=== PATIENT | male | born 1970 | race Caucasian/White ===

== ENCOUNTER 2020-07-17 15:33 | Inpatient (IN) | payer OTHER ==
[~2020-07-17] VITALS: Ht 182.9 cm; Wt 90.3 kg
[~2020-07-17 15:33] MED LIST: ALBUTEROL2.5 MG/3 M INH; AMLODIPINE BESY10 MG PO; COZAAR100 MG PO; CYANOCOBAL1000 MCG/1 INJ; LORATADINE10 MG PO; OMEPRAZOLE20 MG PO; SIMVASTATIN10 MG PO; VITAMIN D350 MC3 PO
[2020-07-17 19:02] LABS: BUN/CREATININE RATIO 16 (0-10)
[2020-07-17 20:23] LABS: HEMOGLOBIN 9.3 gm/dl (14.0-17.5); RED BLOOD COUNT 3.47 M/UL (4.20-5.50); WHITE BLOOD COUNT 20.7 K/UL (4.5-11.0)
[2020-07-17] MEDS ORDERED: MULTIVITAMINS1 EAC2 PO (20:44)
[2020-07-17] MEDS ORDERED: LEVOFLOXACIN750 MG PO (20:45)
[2020-07-18 04:39] LABS: RED BLOOD COUNT 3.22 M/UL (4.20-5.50); WHITE BLOOD COUNT 21.5 K/UL (4.5-11.0)
[2020-07-18 05:00] LABS: BUN/CREATININE RATIO 14 (0-10)
[2020-07-20 04:35] LABS: HEMOGLOBIN 8.2 gm/dl (14.0-17.5); RED BLOOD COUNT 2.98 M/UL (4.20-5.50)
[2020-07-20 04:46] LABS: WHITE BLOOD COUNT 12.3 K/UL (4.5-11.0)
[2020-07-20 04:58] LABS: BUN/CREATININE RATIO 7 (0-10)
[2020-07-21 06:24] LABS: BUN/CREATININE RATIO 6 (0-10)
[2020-07-21 06:39] LABS: HEMOGLOBIN 8.8 gm/dl (14.0-17.5); RED BLOOD COUNT 3.2 M/UL (4.20-5.50); WHITE BLOOD COUNT 12.7 K/UL (4.5-11.0)
[2020-07-22 03:34] LABS: HEMOGLOBIN 9.3 gm/dl (14.0-17.5); RED BLOOD COUNT 3.38 M/UL (4.20-5.50); WHITE BLOOD COUNT 11.3 K/UL (4.5-11.0)
[2020-07-22 03:54] LABS: BUN/CREATININE RATIO 6 (0-10)
[2020-07-23 04:34] LABS: HEMOGLOBIN 9.8 gm/dl (14.0-17.5); RED BLOOD COUNT 3.52 M/UL (4.20-5.50)
[2020-07-23 05:04] LABS: BUN/CREATININE RATIO 7 (0-10)
[2020-07-23 05:13] LABS: WHITE BLOOD COUNT 14.9 K/UL (4.5-11.0)
[2020-07-23] MEDS ORDERED: ZYVOX600 MG PO (13:32)
[2020-07-23] MEDS ORDERED: LEVOFLOXACIN750 MG PO (13:32)
[2020-07-23] MEDS ORDERED: LOPRESSOR 25 MG25 MG PO (13:32)
[2020-07-24 05:50] LABS: HEMOGLOBIN 9.8 gm/dl (14.0-17.5); RED BLOOD COUNT 3.62 M/UL (4.20-5.50); WHITE BLOOD COUNT 14.1 K/UL (4.5-11.0)
[2020-07-24 06:09] LABS: BUN/CREATININE RATIO 7 (0-10)
[2020-07-24] MEDS ORDERED: LEVOFLOXACIN750 MG PO (11:29)
[2020-07-24] MEDS ORDERED: ZYVOX600 MG PO (11:29)
[2020-07-24] MEDS ORDERED: SYMBICORT 160-1 INHA INH (12:56)
[2020-07-24] MEDS ORDERED: SPIRIVA HANDIH18 MCG INH (12:56)
[2020-07-24] MEDS ORDERED: MEROPENEM1 GM IV (14:04)
== END 2020-07-24 17:41 | disposition home or self-care (01) | DRG 871 ==
LOC: ER1 15:33 → CDU 18:22 → M/S 18:22
PROVIDERS: Emergency Medicine; Internal Medicine Pulmonary Disease; Physician Assistant; ADMIT Internal Medicine
PROC: 3E1F88Z Irrigation of Respiratory Tract using Irrigating Substance, Via Natural or Artificial Opening Endoscopic (ICD-10-PCS; principal; 2020-07-18 15:06)
PROC: 0JH63WZ Insertion of Totally Implantable Vascular Access Device into Chest Subcutaneous Tissue and Fascia, Percutaneous Approach (ICD-10-PCS; 2020-07-24)
PROC: 02HV33Z Insertion of Infusion Device into Superior Vena Cava, Percutaneous Approach (ICD-10-PCS; 2020-07-24)
PROC: B548ZZA Ultrasonography of Superior Vena Cava, Guidance (ICD-10-PCS; 2020-07-24)
DX: A41.52 Sepsis due to Pseudomonas (principal); J85.0 Gangrene and necrosis of lung; J15.3 Pneumonia due to streptococcus, group B; C34.11 Malignant neoplasm of upper lobe, right bronchus or lung; A41.9 Sepsis, unspecified organism; J44.9 Chronic obstructive pulmonary disease, unspecified; I10 Essential (primary) hypertension; R00.0 Tachycardia, unspecified; Z87.891 Personal history of nicotine dependence; Z20.822 Contact with and (suspected) exposure to COVID-19; Z79.899 Other long term (current) drug therapy; E87.6 Hypokalemia; D72.829 Elevated white blood cell count, unspecified; D47.3 Essential (hemorrhagic) thrombocythemia; D64.9 Anemia, unspecified
CPT/HCPCS: 36415; 71045; 71046; 71250; 77001; 80048; 80053; 83605; 83615; 83735; 84100; 85025; 86140; 87040; 87070; 87077; 87081; 87186; 87205; 90471; 93005; 94640; 94664; 94760; 96365; 96368; 96376; 99285; C1788; J1642; J1956; J2001; J2020; J2185; J2250; J2543; J2704; J3010; J7030; J7040; J7120; U0002

== ENCOUNTER → 2020-07-30 | Outpatient (CLI) | payer OTHER ==
[~2020-07-30] MED LIST changes: +AUGMENTIN 875-1 EACH PO; +LEVOFLOXACIN750 MG PO; +LOPRESSOR 25 MG25 MG PO; +MEROPENEM1 GM IV; +MULTIVITAMINS1 EAC2 PO; +SPIRIVA HANDIH18 MCG INH; +SYMBICORT 160-1 INHA INH; +ZYVOX600 MG PO
== END ==
LOC: MRI 07-26 14:00
DX: C34.90 Malignant neoplasm of unspecified part of unspecified bronchus or lung (principal); I67.82 Cerebral ischemia
CPT/HCPCS: 70553; A9577

== ENCOUNTER → 2020-11-05 | Outpatient (CLI) | payer OTHER ==
[2020-11-05 13:38] LABS: HEMOGLOBIN 7.3 gm/dl (14.0-17.5)
== END ==
LOC: LAB 12:55
PROVIDERS: Internal Medicine Hematology & Oncology
DX: D64.9 Anemia, unspecified (principal); Z85.118 Personal history of other malignant neoplasm of bronchus and lung
CPT/HCPCS: 36415; 85014; 85018; 86850; 86900; 86901; 86920; P9016

== ENCOUNTER → 2020-11-06 | Outpatient (CLI) | payer OTHER ==
[~2020-11-06] VITALS: Ht 182.9 cm; Wt 91.6 kg
== END ==
LOC: OPSV 07:00
DX: D64.9 Anemia, unspecified (principal); Z85.118 Personal history of other malignant neoplasm of bronchus and lung
CPT/HCPCS: 36430; 96374; 96375; J1642; J1940; J7050; P9016

== ENCOUNTER → 2020-11-13 | Outpatient (CLI) | payer OTHER | LOC: ECHO 11-09 13:00 | DX: R00.0 Tachycardia, unspecified (principal); I34.0 Nonrheumatic mitral (valve) insufficiency | CPT/HCPCS: ECHO; 93306 ==

== ENCOUNTER 2020-11-29 20:04 | Emergency (ER) | payer OTHER ==
[~2020-11-29 20:04] MED LIST changes: -AUGMENTIN 875-1 EACH PO
[2020-11-29 21:23] LABS: HEMOGLOBIN 8.1 gm/dl (14.0-17.5); RED BLOOD COUNT 2.76 M/UL (4.20-5.50); WHITE BLOOD COUNT 10.6 K/UL (4.5-11.0)
[2020-11-29 21:56] LABS: BUN/CREATININE RATIO 16 (0-10)
[2020-11-30] MEDS ORDERED: ZYVOX600 MG PO (00:31)
[2020-11-30] MEDS ORDERED: AUGMENTIN 875-1 EACH PO (00:31)
== END 2020-11-30 00:55 | disposition home or self-care (01) ==
LOC: ER1 20:04
PROVIDERS: Student in an Organized Health Care Education/Training Program
DX: J18.9 Pneumonia, unspecified organism (principal); I10 Essential (primary) hypertension; Z85.118 Personal history of other malignant neoplasm of bronchus and lung; Z79.899 Other long term (current) drug therapy; Z87.891 Personal history of nicotine dependence; Z20.822 Contact with and (suspected) exposure to COVID-19
CPT/HCPCS: 0240U; 71045; 80053; 81001; 82550; 82553; 83605; 83735; 83880; 84100; 84439; 84443; 84484; 85025; 85379; 87040; 87070; 87077; 87086; 87186; 87205; 93005; 96365; 96366; 96367; 99285; J0692; J3370; J7030; Q9967

== ENCOUNTER → 2020-12-12 | Outpatient (CLI) | payer OTHER ==
[~2020-12-12] MED LIST changes: +AUGMENTIN 875-1 EACH PO
== END ==
LOC: LAB 11:22
DX: R00.0 Tachycardia, unspecified (principal)
CPT/HCPCS: 36415; 80162